=== PATIENT | male | born 1950 | race Two or more races ===

== ENCOUNTER 2018-08-14 13:20 | Outpatient (CLI) | payer MEDICARE ==
--- NOTE | 2018-08-14 14:38 | Diagnostic Imaging Report ---
Indication: Cough Technique: PA and lateral views of the chest Findings: Heart size within normal limits. There is questionable subtle retrocardiac opacity noted on lateral view only. No pleural effusion or pneumothorax is identified. There is slight prominence of the right paratracheal stripe which may be related to ectatic vasculature or artifact. Further evaluation with CT however is recommended to exclude other causes of right paratracheal stripe thickening. There are some degenerative change of the spine without acute osseous abnormality. Impression: * Subtle retrocardiac opacity seen on lateral view only. Findings are most concerning for developing pneumonia given history of cough. Clinical correlation and follow-up recommended. * Slight prominence of the right paratracheal stripe which may be artifactual. Consider further evaluation with CT to exclude the possibility of lymphadenopathy or other etiologies.
== END 2018-08-14 15:20 | disposition home or self-care (01) ==
LOC: RAD 13:20
DX: R05 Cough (principal)
CPT/HCPCS: 71046